=== PATIENT | female | born 1960 | race Caucasian/White ===

== ENCOUNTER 2023-01-24 16:18 | Observation (INO) ==
--- NOTE | 2023-01-24 16:49 | XRay Report ---
XR chest 1V not portable CLINICAL HISTORY: Chest pain, nonspecific TECHNIQUE: Single frontal radiograph of the chest was obtained. Comparison: None available at the time of this dictation. FINDINGS: No lines and tubes are seen. The cardiomediastinal silhouette is normal. The lungs are clear. No evid ence of pleural effusion or pneumothorax. IMPRESSION: No acute chest disease. ACT 112: Negative or not required by law. Electronically signed by: Jamie Coyne M.D. 01/24/2023 4:48 PM
[2023-01-24 16:52] LABS: Basophils # (auto) 0.02 K/uL (0-0.2); Basophils % (auto) 0.3 %; Eosinophils # (auto) 0.09 K/uL (0-0.50); Eosinophils % (auto) 1.5 %; Hematocrit (blood only) 38.6 % (37.0-47.0); Hemoglobin 13.4 g/dl (12.0-16.0); Immature Granulocytes # (auto) 0.02 K/uL (0.01-0.20); Immature Granulocytes % (auto) 0.3 %; Lymphocytes % (auto) 32.3 %; Mean Corpuscular Hemoglobin 30.6 pg (25.0-34.0); Mean Corpuscular Hgb Conc 34.7 g/dL (32.0-36.0); Mean Corpuscular Volume 88.1 fL (80.0-100.0); Mean Platelet Volume 9.8 fL (9.4-12.4); Monocytes # (auto) 0.43 K/uL (0.11-0.59); Monocytes % (auto) 7.3 %; Neutrophils # (auto) 3.43 K/uL (1.40-6.50); Neutrophils % (auto) 58.3 %; Platelet Count 205 K/uL (130-400); RDW Coefficient of Variation 12.3 % (11.5-14.5); RDW Standard Deviation 39.7 fL (36.4-46.3); Red Blood Count 4.38 M/uL (4.20-5.40); White Blood Count 5.89 K/ul (4.8-10.8)
[2023-01-24 17:06] LABS: Albumin Globulin Ratio 1.7 (0.9-2); Albumin Level 4.3 gm/dl (3.4-5.0); BUN Creatinine Ratio 20.8 (10-20); Bilirubin,Total 0.3 mg/dl (0.2-1.0); Calcium 9.6 mg/dl (8.6-10.3); Creatinine Clr Calc Pharmacy 96.4 ml/min; Est GFR (Non-African American) 89.8 ml/min; Globulin 2.6 gm/dl (2.5-4.0); Potassium 3.8 mmol/L (3.5-5.1); Total Protein 6.9 gm/dl (6.0-8.3)
[2023-01-24] MEDS ORDERED: ONDANSETRON INJ 2 MG/ML 2 ML VIAL IV STA (17:09)
[2023-01-24] MEDS ORDERED: FAMOTIDINE 20MG IV PUSH 20 MG/5 ML SYR IV STA (17:09)
[2023-01-24] MEDS ORDERED: ASPIRIN 81 MG CHEW PO STA (17:09)
[2023-01-24 17:13] LABS: Troponin I High Sensitivity 2.9 pg/ml (0-14)
--- NOTE | 2023-01-24 17:14 | Emergency Department Note ---
History of Present Illness General Chief complaint: Chest Pain Stated complaint: NAUSEA, CHEST PAIN, LT ARM PAIN Time Seen by Provider: 01/24/23 16:54 History of Present Illness Maximum Pain Intensity: 1 This is a 62-year-old female that presents to the emergency department via private vehicle with complaints of "sensation to vomit, chest pain, left arm pain, left-sided headache". The patient notes that yesterday late in the day she began with chest discomfort, left arm discomfort, sensation to vomit. She described the sensation to vomit as feeling as though there is fluid under her sternum that she needs to vomit but denies any sensation in the mouth or any true vomiting. She states the last time she experienced the chest discomfort and left arm achy sensation was a few hours prior to arrival. In addition she also notes that she has been experiencing a left-sided occipital headache as of recent. She notes that she did not think much of it over the past week or so as she has been taking ibuprofen for a tooth that recently underwent a root canal on the right. She is also currently on Augmentin but denies any issues with the Augmentin. Patient denies any trauma or injury. No fevers or chills. She denies any trouble moving her bowels or urinating. No abdominal pain. She has never had this happen before. She notes a history of hypercholesterolemia. She also takes vitamin D supplementation/multivitamins. She does note history of [place] with her parents prior to age 65. Patient normally takes a low-dose aspirin daily but did not take her medications today. She notes a remote history of GERD. Patient does note she had unilateral leg edema recently following a wedding where she was dancing but denies any known trauma or injury. She states that the leg edema has resolved. Home Medications Medication Instructions Recorded Confirmed Type amoxicillin 875 mg-potassium 1 tab PO Q12 01/24/23 01/24/23 History clavulanate 125 mg tablet aspirin 81 mg tablet,delayed 81 mg PO DAILY 01/24/23 01/24/23 History release cholecalciferol (vitamin D3) 50 50 mcg PO DAILY 01/24/23 01/24/23 History mcg (2,000 unit) tablet (Vitamin D3) epinephrine 0.3 mg/0.3 mL 0.3 mg IM DIRECTED PRN Severe 01/24/23 01/24/23 History injection, auto-injector allergic reaction [id number] tablet 1 tab PO DAILY 01/24/23 01/24/23 History rosuvastatin 20 mg tablet 20 mg PO DAILY 01/24/23 01/24/23 History Allergies Allergy/AdvReac Type Severity Reaction Status Date / Time bee venom protein (honey bee) AdvReac swollen & Verified 01/24/23 19:10 red Past Med/Surg History Medical History Dyslipidemia Esophageal stricture GERD (gastroesophageal reflux disease) Hx of hypercholesterolemia Sinusitis Surgical History H/O tubal ligation History of root canal procedure S/P appy S/P cholecystectomy Family History Mother Coronary heart disease Father Coronary heart disease Social History Smoking Status: Former smoker Second Hand Exposure: No; Do You Dip or Chew Tobacco: No; Hx Alcohol Use: Yes Alcohol type: wine Hx Substance Use: No Preferred Language: Russian Mine Analyst Required: No Beliefs That Will Affect Care: None Current Living Situation: Spouse Current Living Situation Comment: Lives at home with Other Information That Helps Us Care for You: No Feels Safe at Home: Yes Safety Concerns: Feels Safe At This Time Assistive Devices: Glasses Review of Systems A total of 10 systems reviewed and were otherwise negative Physical Exam Vital Signs Vital Signs - 24 hr 01/24/23 16:20 01/24/23 17:08 01/24/23 16:24 Temperature 36.5 C Temperature Source Temporal Artery Scan Pulse Rate 79 74 Pulse Rate from SpO2 Sensor Respiratory Rate 18 Respiratory Effort / Characteristics Non-Labored Blood Pressure 139/87 Blood Pressure Mean 104 Pulse Oximetry 96 94 Oxygen Delivery Method Room Air Room Air Sepsis Recent Fever Within 48 Hours No Sepsis New/Unexplained Change in Mental Status N/A Sepsis Action Taken by Nursing No Action Required 01/24/23 17:06 01/24/23 17:35 Temperature Temperature Source Pulse Rate 71 67 Pulse Rate from SpO2 Sensor 70 Respiratory Rate 20 19 Respiratory Effort / Characteristics Blood Pressure 145/93 H Blood Pressure Mean 110 Pulse Oximetry 94 Oxygen Delivery Method Sepsis Recent Fever Within 48 Hours Sepsis New/Unexplained Change in Mental Status Sepsis Action Taken by Nursing VITAL SIGNS - Vital signs and nursing notes were reviewed. Stable and afebrile. GENERAL -62-year-old female appearing her stated age who is in no acute distress. Communicates well with provider and answers questions appropriately. SKIN - Without rashes. HEAD - NC/AT. EYES - PERRL with EOMI bilaterally. Sclera anicteric. Palpebral conjunctiva pink and moist with no injection noted. EARS - No deformities of external structures noted on gross examination bilaterally. No pain elicited with palpation of the tragus bilaterally. External auditory canals without discharge or otorrhea. Tympanic membranes pearly murillo without retraction or bulging. No fluid or purulent material visualized behind the TM. Handle of malleus, umbo, cone of light, pars tensa/flaccid all easily visualized. NOSE - Midline and without cyanosis. No epistaxis or purulent drainage noted. Septum midline without deviation or septal hematoma noted. MOUTH/OROPHARYNX - Without perioral cyanosis. Buccal mucosa pink and moist and without leukoplakia. Tongue midline with equal elevation of palate bilaterally. No tonsillar hypertrophy, erythema, or exudates noted. Good dentition noted. NECK - Neck with FROM. No nuchal rigidity. LUNGS - Chest wall symmetric without accessory muscle use, intercostals retractions, or central cyanosis. Normal vesicular breath sounds CTA B/L. No wheezes, rales, or rhonchi appreciated. CARDIAC - RRR with S1/S2. No murmur, rubs, or gallops appreciated. ABDOMEN - Abdominal contour normal without pulsations or visible masses. BS normoactive all four quadrants. No tenderness, palpable masses, hepatosplenomegaly, or ascites noted. Overall benign abdominal examination. No guarding or rigidity. EXTREMITIES - No clubbing or peripheral cyanosis. NEUROLOGIC - Cranial nerves II through XII grossly intact. PSYCH - A&O, and cooperates fully with examiner. Pt is very pleasant and interacts well with examiner. Course Administered Medications Discontinued Medications Al Hydrox/Mg Hydrox/Simethicone (Aluminum/Magnesium/Simeth (Maalox Max) 30 Ml Udc) 30 ml PO NOW STA Stop: 01/24/23 19:57 Last Admin: 01/24/23 21:49 Dose: 30 ml Documented By: SHAN Aspirin (Aspirin 81 Mg Chew) 324 mg PO NOW STA Stop: 01/24/23 17:10 Last Admin: 01/24/23 17:39 Dose: 324 mg Documented By: ILYA Famotidine (Pepcid 20mg Iv Push) 20 mg in 5 mls @ 2.5 mls/min IV NOW STA Stop: 01/24/23 17:10 Last Admin: 01/24/23 17:39 Dose: 2.5 mls/min Documented By: ILYA Ioversol (Optiray 320 500ml) 113 ml IV ONCE ONE Stop: 01/24/23 17:25 Last Admin: 01/24/23 17:24 Dose: 113 ml Documented By: SOFÍA Ondansetron HCl (Ondansetron Inj 2 Mg/Ml 2 Ml Vial) 4 mg IV NOW STA Stop: 01/24/23 17:10 Last Admin: 01/24/23 17:39 Dose: 4 mg Documented By: LIYA Medical Decision Making Laboratory Data 01/24/23 16:31 01/24/23 16:31 Lab Results 01/24/23 01/24/23 01/24/23 Range/Units 16:31 16:31 16:31 WBC 5.89 (4.8-10.8) K/ul RBC 4.38 (4.20-5.40) M/uL Hgb 13.4 (12.0-16.0) g/dl Hct 38.6 (37.0-47.0) % MCV 88.1 (80.0-100.0) fL MCH 30.6 (25.0-34.0) pg MCHC 34.7 (32.0-36.0) g/dL RDW Std Deviation 39.7 (36.4-46.3) fL RDW Coeff of Florina 12.3 (11.5-14.5) % Plt Count 205 (130-400) K/uL MPV 9.8 (9.4-12.4) fL Immature Gran % (Auto) 0.3 % Neut % (Auto) 58.3 % Lymph % (Auto) 32.3 % [place] % (Auto) 7.3 % Eos % (Auto) 1.5 % Baso % (Auto) 0.3 % Neut # (Auto) 3.43 (1.40-6.50) K/uL Lymph # (Auto) 1.90 (1.2-3.4) K/uL [place] # (Auto) 0.43 (0.11-0.59) K/uL Eos # (Auto) 0.09 (0-0.50) K/uL Baso # (Auto) 0.02 (0-0.2) K/uL Immature Gran # (Auto) 0.02 (0.01-0.20) K/uL PT 10.3 (9.0-12.0) Seconds INR 0.9 (0.9-1.1) APTT 25.1 (21.0-31.0) Seconds PTT Ratio 0.9 Sodium 139 (136-145) mmol/L Potassium 3.8 (3.5-5.1) mmol/L Chloride 107 (98-107) mmol/L Carbon Dioxide 27 (21-32) mmol/L Anion Gap 5 (3-11) BUN 15 (6-23) mg/dl Creatinine 0.72 (0.6-1.2) mg/dl Est Cr Clr Drug Dosing 96.4 ml/min Est GFR ( Amer) 104.0 ml/min Est GFR (Non-Af Amer) 89.8 ml/min BUN/Creatinine Ratio 20.8 H (10-20) Glucose 87 (70-99(Fasting)) mg/dl Calcium 9.6 (8.6-10.3) mg/dl Total Bilirubin 0.3 (0.2-1.0) mg/dl AST 45 H (13-39) U/L ALT 60 H (7-52) U/L Alkaline Phosphatase 91 (34-104) U/L Troponin I High Sens 2.9 (0-14) pg/ml Total Protein 6.9 (6.0-8.3) gm/dl Albumin 4.3 (3.4-5.0) gm/dl Globulin 2.6 (2.5-4.0) gm/dl Albumin/Globulin Ratio 1.7 (0.9-2) Anaplasma Smear See Comment Lyme Disease IgG Ab (Negative) Lyme Disease IgM Ab (Negative) SARS-CoV-2, RNA, NAAT (NEGATIVE) 01/24/23 01/24/23 Range/Units 16:31 18:54 WBC (4.8-10.8) K/ul RBC (4.20-5.40) M/uL Hgb (12.0-16.0) g/dl Hct (37.0-47.0) % MCV (80.0-100.0) fL MCH (25.0-34.0) pg MCHC (32.0-36.0) g/dL RDW Std Deviation (36.4-46.3) fL RDW Coeff of Florina (11.5-14.5) % Plt Count (130-400) K/uL MPV (9.4-12.4) fL Immature Gran % (Auto) % Neut % (Auto) % Lymph % (Auto) % [place] % (Auto) % Eos % (Auto) % Baso % (Auto) % Neut # (Auto) (1.40-6.50) K/uL Lymph # (Auto) (1.2-3.4) K/uL [place] # (Auto) (0.11-0.59) K/uL Eos # (Auto) (0-0.50) K/uL Baso # (Auto) (0-0.2) K/uL Immature Gran # (Auto) (0.01-0.20) K/uL PT (9.0-12.0) Seconds INR (0.9-1.1) APTT (21.0-31.0) Seconds PTT Ratio Sodium (136-145) mmol/L Potassium (3.5-5.1) mmol/L Chloride (98-107) mmol/L Carbon Dioxide (21-32) mmol/L Anion Gap (3-11) BUN (6-23) mg/dl Creatinine (0.6-1.2) mg/dl Est Cr Clr Drug Dosing ml/min Est GFR ( Amer) ml/min Est GFR (Non-Af Amer) ml/min BUN/Creatinine Ratio (10-20) Glucose (70-99(Fasting)) mg/dl Calcium (8.6-10.3) mg/dl Total Bilirubin (0.2-1.0) mg/dl AST (13-39) U/L ALT (7-52) U/L Alkaline Phosphatase (34-104) U/L Troponin I High Sens (0-14) pg/ml Total Protein (6.0-8.3) gm/dl Albumin (3.4-5.0) gm/dl Globulin (2.5-4.0) gm/dl Albumin/Globulin Ratio (0.9-2) Anaplasma Smear Lyme Disease IgG Ab Negative (Negative) Lyme Disease IgM Ab Negative (Negative) SARS-CoV-2, RNA, NAAT NEGATIVE (NEGATIVE) Imaging Data Radiologist's Impression: Chest X-Ray 01/24/23 16:24 XR chest 1V not portable CLINICAL HISTORY: Chest pain, nonspecific TECHNIQUE: Single frontal radiograph of the chest was obtained. Comparison: None available at the time of this dictation. FINDINGS: No lines and tubes are seen. The cardiomediastinal silhouette is normal. The lungs are clear. No evidence of pleural effusion or pneumothorax. IMPRESSION: No acute chest disease. ACT 112: Negative or not required by law. Electronically signed by: Jamie Coyne M.D. 01/24/2023 4:48 PM Chest CTA 01/24/23 17:09 CT angio chest PE protocol CLINICAL HISTORY: chest pain/L arm pain, vomit sensation, leg edema TECHNIQUE: Multidetector row helical CT of the chest was performed with angiographic protocol. Coronal and sagittal reformations were obtained. Coronal and sagittal MIPS were obtained from the axial data set and were submitted for review. Automated dose lowering techniques and/or adjustment according to patient size were utilized for this exam. CT DOSE: 1430.55 mGy.cm Comparison: None available at the time of this dictation. FINDINGS: Lungs and pleura: Calcified granulomata are seen. Heart and pericardium: Heart size is normal. No pericardial effusion. Vessels: No evidence of pulmonary embolism. Mediastinum and tammy: Unremarkable. Chest wall and lower neck: Unremarkable. Abdomen: Patient is status post cholecystectomy. A small hiatal hernia is seen. Bones: Unremarkable. IMPRESSION: No pulmonary embolus is seen. ACT 112: Negative or not required by law. Electronically signed by: Jamie Coyne M.D. 01/24/2023 6:[address] 01/24/23 17:09 CT head/brain wo con CLINICAL HISTORY: L sided headache, sensation to vomit Technique: Contiguous axial CT images of the head were acquired from the base of the skull to the vertex without intravenous contrast administration. Images were viewed in brain, subdural and bone windows. Automated dose lowering techniques and/or adjustment according to patient size were utilized for this exam. Comparison: None available at the time of this dictation. Findings: The ventricles, basal cisterns, and cerebral sulci are normal. There is no acute intracranial hemorrhage or evidence of acute territorial infarction. Neither mass effect, shift of the midline structures, nor abnormal extra-axial fluid collections are shown. Bilateral postsurgical changes are seen in the sinuses. The orbits appear normal. There are no acute fractures of the calvaria or scalp swelling. Impression: No acute intracranial hemorrhage, no evidence of acute territorial infarction or other acute intracranial disease process. ACT 112: Negative or not required by law. Electronically signed by: Jamie Coyne M.D. 01/24/2023 5:39 PM MDM Narrative Patient was seen and evaluated as above in room B11. Review was performed of triage nursing notes and vital signs. After obtaining a thorough history and physical examination the above work up was performed. Patient presents to us today for assessment of chest pain, left arm achy sensation, left occipital headache and the sensation that she has to vomit. Clinically well-appearing and nontoxic. Vital signs stable. Options of care were discussed with the patient. IV access was established. Labs were drawn. Labs reveal no leukocytosis or concerning anemia. Coags normal. No emergent metabolic disturbance. Mild transaminitis with AST at 45 and ALT at 60. Troponin negative. Anaplasmosis smear negative with send out test pending. Lyme negative. Chest x-ray negative. CT chest PE was obtained noting the patient's symptoms and is as above and negative for PE. CT head also obtained noting the patient's headache. This was also negative. Patient has been taking ibuprofen recently and is on Augmentin. Certainly there could be a component of reflux causing her discomfort however I do believe that cardiac rule out is reasonable. While here in the ED she was administered aspirin as well as IV Pepcid and Zofran. No change in symptoms. I believe that further evaluation and management in the inpatient setting is warranted. Case discussed with the hospitalist service. Please refer to further documentation regarding her stay. Patient amenable to plan of care. EKG per my interpretation reveals normal sinus rhythm at a rate of 78 bpm. QTc 430. QRS 90. There is no ST elevation. GCS: 15 In the evaluation and treatment of this patient the following differential diagnoses were entertained: [place], PE, dissection, esophagitis, gastritis, reflux, pneumonia, costochondritis, among others. Impression & Plan Chest pain, Headache, Transaminitis Discharge Plan Visit Data Chief Complaint: Chest Pain Stated Complaint: NAUSEA, CHEST PAIN, LT ARM PAIN ED Provider: Jhonny Martinez ED Midlevel Provider: Johnathan Reeves Discharge Problem: Chest pain, Headache, Transaminitis Patient Disposition: Admitted As Inpatient Condition: Good Discharge Instructions Interventions: ED Discharge Assessment Last Done: 01/24/23 20:08
[2023-01-24 17:20] LABS: INR 0.9 (0.9-1.1); Partial Thromboplastin Ratio 0.9; Partial Thromboplastin Time 25.1 Seconds (21.0-31.0); Prothrombin Time 10.3 Seconds (9.0-12.0)
[2023-01-24] MEDS ORDERED: OPTIRAY 320 500ml IV ONE (17:24)
--- NOTE | 2023-01-24 17:40 | CT Scan Report ---
CT head/brain wo con CLINICAL HISTORY: L sided headache, sensation to vomit Technique: Contiguous axial CT images of the head were acquired from the base of the skull to the cynthia derrek without intravenous contrast administration. Images were viewed in brain, subdural and bone windo ws. Automated dose lowering techniques and/or adjustment according to patient size were utilized for this exam. Comparison: None available at the time of this dictation. Findings: The ventricles, basal cisterns, and cerebral sulci are normal. There is no acute intracranial hemorrh age or evidence of acute territorial infarction. Neither mass effect, shift of the midline structures , nor abnormal extra-axial fluid collections are shown. Bilateral postsurgical changes are seen in the sinuses. The orbits appear normal. There are no acute fractures of the calvaria or scalp swelling. Impression: No acute intracranial hemorrhage, no evidence of acute territorial infarction or other acute intracra nial disease process. ACT 112: Negative or not required by law. Electronically signed by: Jamie Coyne M.D. 01/24/2023 5:39 PM
[2023-01-24 18:11] LABS: Lyme Ab IgG w/WB Rflx Negative (Negative); Lyme Ab IgM w/WB Rflx Negative (Negative)
--- NOTE | 2023-01-24 18:26 | CT Scan Report ---
CT angio chest PE protocol CLINICAL HISTORY: chest pain/L arm pain, vomit sensation, leg edema TECHNIQUE: Multidetector row helical CT of the chest was performed with angiographic protocol. Rascon l and sagittal reformations were obtained. Coronal and sagittal MIPS were obtained from the axial aissatou a set and were submitted for review. Automated dose lowering techniques and/or adjustment according to patient size were utilized for this exam. CT DOSE: 1430.55 mGy.cm Comparison: None available at the time of this dictation. FINDINGS: Lungs and pleura: Calcified granulomata are seen. Heart and pericardium: Heart size is normal. No pericardial effusion. Vessels: No evidence of pulmonary embolism. Mediastinum and tammy: Unremarkable. Chest wall and lower neck: Unremarkable. Abdomen: Patient is status post cholecystectomy. A small hiatal hernia is seen. Bones: Unremarkable. IMPRESSION: No pulmonary embolus is seen. ACT 112: Negative or not required by law. Electronically signed by: Jamie Coyne M.D. 01/24/2023 6:24 PM
--- NOTE | 2023-01-24 19:24 | History & Physical Report ---
Date of Service January 24, 2023 Assessment & Plan (1) Atypical chest pain: Plan: Unlikely that symptoms are cardiac in nature with her description of needing to vomit up something for relief. Symptoms are not consistent with ACS, and there is no elevation in troponin or EKG changes. It is more likely that she is having a GI side effect of recent Augmentin and prescription strength Ibuprofen use related to recent root canal with dental infection. We are stopping both agents now as she has already had 7 days. Maalox for discomfort. As she is continuing to tolerate PO and ask for food this is reassuring that she will continue to improve off these medications. Rule out ACS was felt prudent given her family history and dyslipidemia. Will order a stress test in the morning after serial cardiac troponins result negative. (2) Transaminitis: Plan: Mild elevation in both AST and ALT is possibly related to recent antibiotic use, ibuprofen use, statin use or all of the above. Clinical picture is not consistent with fulminant hepatitis, which is a known severe reaction to augmentin. Would repeat LFTs in one week to ensure they are stable or decreased. (3) Dyslipidemia: Plan: on Crestor 20mg which had intermittently been stopped while she was living in [place] for several months. She is concerned this may be causing headaches. Cont for now and discuss further with primary provider. Repeat fasting lipid panel in am. (4) GERD (gastroesophageal reflux disease): Plan: this has resolved and she is off PPI for >1 year. Lovenox Full Code Dispo-to home in am pending results of stress test. Shira Dutton DO [facility] Hospitalist History of Present Illness Chief Complaint: chest pain Primary Care Provider: Paul Wiggins 62 yo F nonsmoker with no prior history of CAD presents with left sided chest pain and left arm pain described as a soreness. She has a feeling of something in her stomach that needs to be vomited up but she is unable to get it out. She denies any abdominal pain or nausea and states that the zofran did not improve her symptoms. She reports a posterior headache for the past two months. She has undergone a two-staged root canal and required Ibuprofen consistently for pain over the last couple of weeks as well as a week long course of clindamycin and most recently a week long course of Augmentin. She started feeling this GI discomfort within the last week. She is still able to eat food and is requesting dinner. She has no history of CAD, and is low risk despite a history of smoking and hyperlipidemia on Crestor. She feels her headache may be a side effect of her crestor. She reports her mom had an IL in her 60s and both parents required open heart surgery. She has a h/o GERD but reports this has been resolved and she has been off her PPI for >1 year. She has a distant h/o esophageal stricture, last requiring dilation in 2007 or 2008. She denies any symptoms of dysphagia or globus sensation and no weight loss, hematemesis or other alarm symptoms. Allergies Allergy/AdvReac Type Severity Reaction Status Date / Time bee venom protein (honey bee) AdvReac swollen & Verified 01/24/23 19:10 red Home Medications Medication Instructions Recorded Confirmed Type amoxicillin 875 mg-potassium 1 tab PO Q12 01/24/23 01/24/23 History clavulanate 125 mg tablet aspirin 81 mg tablet,delayed 81 mg PO DAILY 01/24/23 01/24/23 History release cholecalciferol (vitamin D3) 50 50 mcg PO DAILY 01/24/23 01/24/23 History mcg (2,000 unit) tablet (Vitamin D3) epinephrine 0.3 mg/0.3 mL 0.3 mg IM DIRECTED PRN Severe 01/24/23 01/24/23 History injection, auto-injector allergic reaction [id number]-wcdvmpgm-rxcmsw tablet 1 tab PO DAILY 01/24/23 01/24/23 History rosuvastatin 20 mg tablet 20 mg PO DAILY 01/24/23 01/24/23 History Past Med/Surg History Medical History Dyslipidemia Esophageal stricture GERD (gastroesophageal reflux disease) Hx of hypercholesterolemia Sinusitis Surgical History H/O tubal ligation History of root canal procedure S/P appy S/P cholecystectomy Family History Mother Coronary heart disease Father Coronary heart disease Social History Smoking Status: Former smoker Hx Alcohol Use: Yes Preferred Language: Pashto Feels Safe at Home: Yes Review of Systems Review of Systems: All systems were reviewed and negative except as indicated on HPI above. Physical Exam Physical Exam: CONSTITUTIONAL: WNWD, vitals as above, generally well-appearing, NAD EYES: normal conjunctivae, no scleral icterus ENT: external ear and nose normal, MMM NECK: trachea midline RESPIRATORY: clear to auscultation bilaterally, no crackles, rales or wheezes, normal respiratory effort CARDIOVASCULAR: regular rate and rhythm, S1 and 2 heard without murmurs, gallops or rubs, no JVD, no peripheral edema CHEST: inspection of chest was normal GASTROINTESTINAL: soft, nontender, ND, no guarding MUSCULOSKELETAL: strength 5/5 throughout, head is normocephalic and atraumatic SKIN: warm and dry NEUROLOGIC: CN 2-12 grossly intact, no sensory deficit, normal cognition, normal speech, no tremor PSYCHIATRIC: alert cooperative and oriented to person, place and time. Euthymic mood, makes good eye contact, language grossly intact, recent and remote memory grossly intact. Results & Data Results & Data Vital Signs (Past 12 Hours) Vital Signs Temp Pulse Resp BP Pulse Ox O2 Del Method 01/24/23 17:35 67 19 01/24/23 17:06 71 20 145/93 H 94 01/24/23 16:24 94 Room Air 01/24/23 17:08 74 01/24/23 16:20 36.5 C 79 18 139/87 96 Room Air Laboratory Results Short CBC 01/24/23 Range/Units 16:31 WBC 5.89 (4.8-10.8) K/ul Hgb 13.4 (12.0-16.0) g/dl Hct 38.6 (37.0-47.0) % Plt Count 205 (130-400) K/uL BMP 01/24/23 16:31 Sodium 139 Potassium 3.8 Chloride 107 Carbon Dioxide 27 BUN 15 Creatinine 0.72 Glucose 87 Calcium 9.6 Liver Function 01/24/23 Range/Units 16:31 Total Bilirubin 0.3 (0.2-1.0) mg/dl AST 45 H (13-39) U/L ALT 60 H (7-52) U/L Alkaline Phosphatase 91 (34-104) U/L Albumin 4.3 (3.4-5.0) gm/dl Diagnostic Findings Chest X-Ray 01/24/23 16:24 XR chest 1V not portable CLINICAL HISTORY: Chest pain, nonspecific TECHNIQUE: Single frontal radiograph of the chest was obtained. Comparison: None available at the time of this dictation. FINDINGS: No lines and tubes are seen. The cardiomediastinal silhouette is normal. The lungs are clear. No evidence of pleural effusion or pneumothorax. IMPRESSION: No acute chest disease. ACT 112: Negative or not required by law. Electronically signed by: Jamie Coyne M.D. 01/24/2023 4:48 PM Chest CTA 01/24/23 17:09 CT angio chest PE protocol CLINICAL HISTORY: chest pain/L arm pain, vomit sensation, leg edema TECHNIQUE: Multidetector row helical CT of the chest was performed with angiographic protocol. Coronal and sagittal reformations were obtained. Coronal and sagittal MIPS were obtained from the axial data set and were submitted for review. Automated dose lowering techniques and/or adjustment according to patient size were utilized for this exam. CT DOSE: 1430.55 mGy.cm Comparison: None available at the time of this dictation. FINDINGS: Lungs and pleura: Calcified granulomata are seen. Heart and pericardium: Heart size is normal. No pericardial effusion. Vessels: No evidence of pulmonary embolism. Mediastinum and tammy: Unremarkable. Chest wall and lower neck: Unremarkable. Abdomen: Patient is status post cholecystectomy. A small hiatal hernia is seen. Bones: Unremarkable. IMPRESSION: No pulmonary embolus is seen. ACT 112: Negative or not required by law. Electronically signed by: Jamie Coyne M.D. 01/24/2023 6:[address] 01/24/23 17:09 CT head/brain wo con CLINICAL HISTORY: L sided headache, sensation to vomit Technique: Contiguous axial CT images of the head were acquired from the base of the skull to the vertex without intravenous contrast administration. Images were viewed in brain, subdural and bone windows. Automated dose lowering techniques and/or adjustment according to patient size were utilized for this exam. Comparison: None available at the time of this dictation. Findings: The ventricles, basal cisterns, and cerebral sulci are normal. There is no acute intracranial hemorrhage or evidence of acute territorial infarction. Neither mass effect, shift of the midline structures, nor abnormal extra-axial fluid collections are shown. Bilateral postsurgical changes are seen in the sinuses. The orbits appear normal. There are no acute fractures of the calvaria or scalp swelling. Impression: No acute intracranial hemorrhage, no evidence of acute territorial infarction or other acute intracranial disease process. ACT 112: Negative or not required by law. Electronically signed by: Jamie Coyne M.D. 01/24/2023 5:39 PM Code Status & VTE Plan VTE Prophylaxis Plan VTE Prophylaxis will be ordered: Yes
[2023-01-24] MEDS ORDERED: ALUMINUM/MAGNESIUM/SIMETH (MAALOX MAX) 30 ML UDC PO STA (19:56)
[2023-01-24] MEDS ORDERED: NITROGLYCERIN SL 0.4 MG/TAB TAB SL PRN (20:50)
[2023-01-24] MEDS ORDERED: ALUMINUM/MAGNESIUM SUSP 30 ML UDC PO PRN (20:50)
[2023-01-24] MEDS ORDERED: ACETAMINOPHEN 325 MG TAB PO PRN (20:50)
[2023-01-25 03:54] LABS: Basophils # (auto) 0.02 K/uL (0-0.2); Basophils % (auto) 0.3 %; Eosinophils # (auto) 0.08 K/uL (0-0.50); Eosinophils % (auto) 1.3 %; Hemoglobin 12.7 g/dl (12.0-16.0); Immature Granulocytes # (auto) 0.02 K/uL (0.01-0.20); Immature Granulocytes % (auto) 0.3 %; Lymphocytes # (auto) 2.16 K/uL (1.2-3.4); Lymphocytes % (auto) 34.2 %; Mean Corpuscular Hemoglobin 30.9 pg (25.0-34.0); Mean Corpuscular Hgb Conc 34.3 g/dL (32.0-36.0); Mean Platelet Volume 9.7 fL (9.4-12.4); Monocytes # (auto) 0.43 K/uL (0.11-0.59); Monocytes % (auto) 6.8 %; Neutrophils # (auto) 3.61 K/uL (1.40-6.50); Neutrophils % (auto) 57.1 %; Platelet Count 195 K/uL (130-400); RDW Coefficient of Variation 12.4 % (11.5-14.5); RDW Standard Deviation 40.9 fL (36.4-46.3); Red Blood Count 4.11 M/uL (4.20-5.40); White Blood Count 6.32 K/ul (4.8-10.8)
[2023-01-25 04:11] LABS: BUN Creatinine Ratio 18.1 (10-20); Calcium 9.2 mg/dl (8.6-10.3); Chol HDL Ratio 3.7 (0-5); Creatinine Clr Calc Pharmacy 83.2 ml/min; Est GFR (African American) 87.6 ml/min; Est GFR (Non-African American) 75.6 ml/min; Potassium 3.8 mmol/L (3.5-5.1)
[2023-01-25 07:20] LABS: Estimated Average Glucose 114 mg/dl; Hemoglobin A1C 5.6 % (4.5-5.6)
[2023-01-25] MEDS ORDERED: ATROPINE SULFATE 0.1 MG/ML 10ML SYR IV ONE (08:16)
[2023-01-25] MEDS ORDERED: METOPROLOL TARTRATE 1 MG/ML VIAL IV ONE (08:16)
[2023-01-25] MEDS ORDERED: DOBUTamine HCL 12.5 MG/ML 20 ML VIAL IV ONE (08:16)
--- NOTE | 2023-01-25 08:47 | Cardiology Consultation ---
Date of Consultation January 25, 2023 Assessment & Plan (1) Atypical chest pain: -Serial troponin measurements are reassuring. EKG x 1 within normal limits. -Patient is gone on to have an exercise stress echocardiogram which was supervised independently by the undersigned. -No symptoms suggestive of angina or induced with exercise. At baseline, she had ongoing epigastric discomfort that she described as being a "acid "feeling and sound characteristic of dyspepsia rather than angina. Symptoms were not wor se with progressive exercise and I think the stress test is reassuring. -I am going to transfer back to the telemetry unit and advance her diet as she is very hungry at this point having been n.p.o. this morning for stress test. (2) Dyslipidemia: -LDL 105 -AST 45, ALT 60 u/l in presentation, yet to be repeated. -Patient notes recent treatment with clindamycin, Augmentin, and acetaminophen. -If repeat levels are improved, consider resuming rosuvastatin. (3) Transaminitis: -Plan for repeat (4) GERD (gastroesophageal reflux disease): -Consider adding an H2 donn or PPI. -Patient with remote esophageal stricture with dilatation procedure that took place elsewhere greater than 10 years ago. History of Present Illness Attending Physician: Izaiah Rich MD History of Present Illness Cammie Osorio is a 62-year-old female seen in cardiology consultation per the request of Dr. Dutton for the evaluation of epigastric discomfort and left chest/arm discomfort. She notes onset of symptoms yesterday. Occurring at rest. His left arm and chest discomfort has resolved, but she still has an uneasy feeling in her epigastric region. She has no personal history of coronary heart disease and does not follow with cardiology on a routine basis. She does however have a history of GERD, but has been off of PPI therapy for 1 year with symptoms well controlled. She has a history of esophageal stricture last requiring dilatation in 2007 or 2008. She has been prescribed rosuvastatin 20 mg daily. She is in the process of changing providers. She has homes in [facility], [place], [place], in [place], and is working on establishing with a new primary care provider in [place]. She had therefore run out of her rosuvastatin and had been off of it for approximately 5 months. The prescription was refilled when she was at urgent care a week ago and she has only been on it for a week. Per her description to me, she was off the rosuvastatin because of having run out of her medications now because of a side effect. Other relevant history includes having had a two-stage root canal that took place in December and subsequent treatment with 10 days of clindamycin, and also treatment with ibuprofen. Shortly thereafter she developed respiratory symptoms including sinus pressure. She had been seen by urgent care, and initially was treated conservatively, but when her symptoms worsen she was placed on a course of Augmentin and she remains on Augmentin with 2 days of treatment left ago. She has tolerated Augmentin well without any diarrhea or other related side effects. 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, and is an systems architecture analyst Allergies Allergy/AdvReac Type Severity Reaction Status Date / Time bee venom protein (honey bee) AdvReac swollen & Verified 01/24/23 19:10 red Home Medications Medication Instructions Recorded Confirmed Type amoxicillin 875 mg-potassium 1 tab PO Q12 01/24/23 01/24/23 History clavulanate 125 mg tablet aspirin 81 mg tablet,delayed 81 mg PO DAILY 01/24/23 01/24/23 History release cholecalciferol (vitamin D3) 50 50 mcg PO DAILY 01/24/23 01/24/23 History mcg (2,000 unit) tablet (Vitamin D3) epinephrine 0.3 mg/0.3 mL 0.3 mg IM DIRECTED PRN Severe 01/24/23 01/24/23 History injection, auto-injector allergic reaction kvuiqkadjqxs-zsnklbyo-wgixce tablet 1 tab PO DAILY 01/24/23 01/24/23 History rosuvastatin 20 mg tablet 20 mg PO DAILY 01/24/23 01/24/23 History Patient History Medical History Dyslipidemia Esophageal stricture GERD (gastroesophageal reflux disease) Hx of hypercholesterolemia Sinusitis Surgical History H/O tubal ligation History of root canal procedure S/P appy S/P cholecystectomy Family History Mother Coronary heart disease Father Coronary heart disease Social History Smoking Status: Former smoker Second Hand Exposure: No; Do You Dip or Chew Tobacco: No; Hx Alcohol Use: Yes Alcohol type: wine Hx Substance Use: No Preferred Language: Bulgarian [employer] Required: No Beliefs That Will Affect Care: None Current Living Situation: Spouse Current Living Situation Comment: Lives at home with Other Information That Helps Us Care for You: No Feels Safe at Home: Yes Safety Concerns: Feels Safe At This Time Assistive Devices: Glasses Review of Systems Review of Systems: All systems reviewed & are unremarkable except as noted in HPI & below Physical Exam Physical Exam: Temp Pulse Resp BP Pulse Ox O2 Del Method 36.7 C 62 18 108/62 95 Room Air 01/25/23 08:34 01/25/23 08:34 01/25/23 08:34 01/25/23 08:34 01/25/23 08:34 01/25/23 08:34 Constitutional: WD/WN, vitals as above Respiratory: normal respiratory effort, lungs clear to auscultation Cardiovascular: RRR, no murmur, no edema Gastrointestinal (Abdomen): normal bowel sounds, soft, nontender, no hepatosplenomegaly Neurologic: PERRL, EOMI, accommodation nl, no face palsy, no dysarthria Results & Data Vital Signs (Past 12 Hours) Vital Signs Temp Pulse Pulse Resp BP Pulse Ox O2 Del Method 01/25/23 08:34 36.7 C 62 18 108/62 95 Room Air 01/25/23 07:21 58 L 01/25/23 03:13 36.8 C 57 L 18 108/68 96 Room Air 01/24/23 23:43 61 01/24/23 23:08 36.6 C 53 L 18 117/73 97 Room Air 01/24/23 21:54 65 01/24/23 21:33 36.5 C 62 18 143/84 H 97 Room Air Laboratory Results Cardiac Enzymes 01/24/23 01/24/23 01/25/23 Range/Units 16:31 21:00 03:26 AST 45 H (13-39) U/L Troponin I High Sens 2.9 2.8 3.6 (0-14) pg/ml Coagulation 01/24/23 Range/Units 16:31 PT 10.3 (9.0-12.0) Seconds APTT 25.1 (21.0-31.0) Seconds Lipids 01/25/23 Range/Units 03:26 Triglycerides 185 H (0-150) mg/dl Cholesterol 194 (0-200) mg/dl HDL Cholesterol 52 mg/dl Cholesterol/HDL Ratio 3.7 (0-5) CBC 01/24/23 01/25/23 Range/Units 16:31 03:26 WBC 5.89 6.32 (4.8-10.8) K/ul RBC 4.38 4.11 L (4.20-5.40) M/uL Hgb 13.4 12.7 (12.0-16.0) g/dl Hct 38.6 37.0 (37.0-47.0) % Plt Count 205 195 (130-400) K/uL Neut # (Auto) 3.43 3.61 (1.40-6.50) K/uL Lymph # (Auto) 1.90 2.16 (1.2-3.4) K/uL [place] # (Auto) 0.43 0.43 (0.11-0.59) K/uL Eos # (Auto) 0.09 0.08 (0-0.50) K/uL Baso # (Auto) 0.02 0.02 (0-0.2) K/uL Comprehensive Metabolic Panel 01/24/23 01/25/23 Range/Units 16:31 03:26 Sodium 139 143 (136-145) mmol/L Potassium 3.8 3.8 (3.5-5.1) mmol/L Chloride 107 106 (98-107) mmol/L Carbon Dioxide 27 33 H (21-32) mmol/L BUN 15 15 (6-23) mg/dl Creatinine 0.72 0.83 (0.6-1.2) mg/dl Glucose 87 94 (70-99(Fasting)) mg/dl Calcium 9.6 9.2 (8.6-10.3) mg/dl AST 45 H (13-39) U/L ALT 60 H (7-52) U/L Alkaline Phosphatase 91 (34-104) U/L Total Protein 6.9 (6.0-8.3) gm/dl Albumin 4.3 (3.4-5.0) gm/dl Intake and Output 01/24/23 01/25/23 01/25/23 22:59 06:59 14:59 Intake Total 200 / 200 0 / 200 Balance 200 / 200 0 / 200 Intake: Oral 200 / 200 0 / 200 Other: Other Intake Source NPO # Unmeasured Voids 1 Weight 84.7 kg 84.7 kg Weight Measurement Method Standing Scale Standing Scale Reports reviewed with chest x-ray, CT angiogram of the chest and head CT that were unremarkable. Diagnostic Findings EKG performed 01/24/2023 at 1627 revealed normal sinus rhythm at 70 bpm, normal EKG
--- NOTE | 2023-01-25 13:49 | Discharge Summary ---
Date of Service January 25, 2023 Admission HPI Per Admitting Provider 62 yo F nonsmoker with no prior history of CAD presents with left sided chest pain and left arm pain described as a soreness. She has a feeling of something in her stomach that needs to be vomited up but she is unable to get it out. She denies any abdominal pain or nausea and states that the zofran did not improve her symptoms. She reports a posterior headache for the past two months. She has undergone a two-staged root canal and required Ibuprofen consistently for pain over the last couple of weeks as well as a week long course of clindamycin and most recently a week long course of Augmentin. She started feeling this GI discomfort within the last week. She is still able to eat food and is requesting dinner. She has no history of CAD, and is low risk despite a history of smoking and hyperlipidemia on Crestor. She feels her headache may be a side effect of her crestor. She reports her mom had an IA in her 60s and both parents required open heart surgery. She has a h/o GERD but reports this has been resolved and she has been off her PPI for >1 year. She has a distant h/o esophageal stricture, last requiring dilation in 2007 or 2008. She denies any symptoms of dysphagia or globus sensation and no weight loss, hematemesis or other alarm symptoms. Admission Exam Per Admitting Provider CONSTITUTIONAL: WNWD, vitals as above, generally well-appearing, NAD EYES: normal conjunctivae, no scleral icterus ENT: external ear and nose normal, MMM NECK: trachea midline RESPIRATORY: clear to auscultation bilaterally, no crackles, rales or wheezes, normal respiratory effort CARDIOVASCULAR: regular rate and rhythm, S1 and 2 heard without murmurs, gallops or rubs, no JVD, no peripheral edema CHEST: inspection of chest was normal GASTROINTESTINAL: soft, nontender, ND, no guarding MUSCULOSKELETAL: strength 5/5 throughout, head is normocephalic and atraumatic SKIN: warm and dry NEUROLOGIC: CN 2-12 grossly intact, no sensory deficit, normal cognition, normal speech, no tremor PSYCHIATRIC: alert cooperative and oriented to person, place and time. Euthymic mood, makes good eye contact, language grossly intact, recent and remote memory grossly intact. Principal Diagnosis Atypical chest pain/epigastric pain - likely from GERD Discharge Exam CONSTITUTIONAL: WNWD, generally well-appearing, F in NAD EYES: normal conjunctivae, no scleral icterus ENT: external ear and nose normal, MMM NECK: trachea midline, neck supple RESPIRATORY: clear to auscultation bilaterally, no crackles, rales or wheezes, normal respiratory effort CARDIOVASCULAR: regular rate and rhythm, S1 and 2 heard without murmurs, gallops or rubs, no JVD, no peripheral edema CHEST: inspection of chest normal GASTROINTESTINAL: soft, nontender, ND, no guarding MUSCULOSKELETAL: strength 5/5 throughout, head is normocephalic and atraumatic SKIN: warm and dry NEUROLOGIC:Awake alert oriented, answering appropriately, no facial asymmetry, speech fluent, moves extremities Discharge Data Allergies Allergy/AdvReac Type Severity Reaction Status Date / Time bee venom protein (honey bee) AdvReac swollen & Verified 01/24/23 19:10 red Consultations 01/24/23 18:48 ED Decision to Admit Stat 01/25/23 07:14 Consult Cardiology Routine Ordered Studies 01/24/23 17:09 CT angio chest PE protocol Stat FINDINGS: Lungs and pleura: Calcified granulomata are seen. Heart and pericardium: Heart size is normal. No pericardial effusion. Vessels: No evidence of pulmonary embolism. Mediastinum and tammy: Unremarkable. Chest wall and lower neck: Unremarkable. Abdomen: Patient is status post cholecystectomy. A small hiatal hernia is seen. Bones: Unremarkable. IMPRESSION: No pulmonary embolus is seen. CT head/brain wo con Stat Findings: The ventricles, basal cisterns, and cerebral sulci are normal. There is no acute intracranial hemorrhage or evidence of acute territorial infarction. Neither mass effect, shift of the midline structures, nor abnormal extra-axial fluid collections are shown. Bilateral postsurgical changes are seen in the sinuses. The orbits appear normal. There are no acute fractures of the calvaria or scalp swelling. Impression: No acute intracranial hemorrhage, no evidence of acute territorial infarction or other acute intracranial disease process. Hospital Course (1) Atypical chest pain: Unlikely that symptoms are cardiac in nature with her description of needing to vomit up something for relief. Symptoms are not consistent with ACS, and there is no elevation in troponin or EKG changes. It is more likely that she is having a GI side effect of recent Augmentin and prescription strength Ibuprofen use related to recent root canal with dental infection. We are stopping both agents now as she has already had 7 days. Maalox for discomfort. As she is continuing to tolerate PO and ask for food this is reassuring that she will continue to improve off these medications. Rule out ACS was felt prudent given her family history and dyslipidemia. Stress test obtained this AM and negative - pt seen by cardiology. Symptoms likely secondary to GERD. Patient would like to be discharged, and follow-up in early February in [place], as that is where they have another home. She has not been on PPI for over a year, will restart PPI, and also prescribed sucralfate. (2) Transaminitis: Mild elevation in both AST and ALT is possibly related to recent antibiotic use, ibuprofen use, statin use or all of the above. Clinical picture is not consistent with fulminant hepatitis, which is a known severe reaction to augmentin. Would repeat LFTs in one week/ next outpt appointment to ensure they are stable or decreased. (3) Dyslipidemia: on Crestor 20mg which had intermittently been stopped while she was living in [place] for several months. She is concerned this may be causing headaches. Cont for now and discuss further with primary provider. Repeat fasting lipid panel in am. current LDL 105 (4) GERD (gastroesophageal reflux disease): she has been off PPI for >1 year. Hx of GERD and tried different medications in the past as many did not work for her. Pls see above. Will restart ppi and sucralfate. Total Time Total Time Spent Total Time Spent (In Minutes): 40 Discharge Plan Discharge Items Patient Disposition: Home - Self-Care Reason For Visit: NAUSEA, CHEST PAIN, LT ARM PAIN Discharge Diagnosis: Atypical chest pain/epigastric pain - likely from GERD Condition on Discharge: Good Activity: Per Instructions section Non-emergency contact: Primary Care Provider Call non-emergency contact if: you have any medication questions and your symptoms worsen Follow-up/Referrals: Paul Wiggins [Primary Care Provider] - (Dr Wiggins' office has been made aware of your discharge from [facility] and will call you with a follow up appointment.) Diet: Heart Healthy Diet Comment: Avoid spicy, acidic foods, caffeine and alcohol Addtl Attending Provider Instructions: Recommend to follow-up with primary care physician within 1 to 2 weeks. Recommend to avoid spicy, acidic foods, caffeine and alcohol. Recommend to resume medication for GERD, Aciphex, and use sucralfate as needed. If symptoms persist, please make sure to contact healthcare provider for further evaluation. Pending Studies at Discharge: No Stand-Alone Forms: My [facility], Smoking Cessation Medications and DC Order Prescriptions: New rabeprazole [AcipHex] 20 mg tablet,delayed release (DR/EC) 20 mg PO DAILY Qty: 30 0RF sucralfate 1 gram tablet 1 g PO TID PRN (Reason: acid reflux) Qty: 30 0RF Rx Instructions: take before meals Continued aspirin 81 mg Tablet,Delayed Release (Dr/Ec) 81 mg PO DAILY epinephrine 0.3 mg/0.3 mL Auto-Injector 0.3 mg IM DIRECTED PRN (Reason: Severe allergic reaction) [id number] Tablet 1 tab PO DAILY rosuvastatin 20 mg tablet 20 mg PO DAILY cholecalciferol (vitamin D3) [Vitamin D3] 50 mcg (2,000 unit) Tablet 50 mcg PO DAILY Discontinued amoxicillin-pot clavulanate 875-125 mg tablet 1 tab PO Q12 Rx Instructions: Started on 01/19/23 Discharge Orders: Discharge Order (Routine); Ordered 01/25/23 Ordered By: Izaiah Rich Admission Data Admit Date/Time: 01/24/23 19:16 Attending Provider: Izaiah Rich Admit Provider: Shira Dutton Primary Care Provider: Paul Wiggins Other Providers: Shira Dutton ; Carlos Cooney Other Interventions: Discharge Summary Assessment (RN) Last Done: 01/25/23 13:47
--- NOTE | 2023-01-25 16:36 | Electrocardiogram Report ---
Test Reason : Blood Pressure : / mmHG Vent. Rate : 078 BPM Atrial Rate : 078 BPM P-R Int : 162 ms QRS Dur : 090 ms QT Int : 378 ms P-R-T Axes : 058 024 045 degrees QTc Int : 430 ms Normal sinus rhythm Normal ECG No previous ECGs available Confirmed by Rick Benavides ([id number] on 01/25/2023 4:36:08 PM Referred By: REFERRED SELF Confirmed By:Juan Alberto Benavides
== END 2023-01-25 14:37 | disposition home or self-care (01) ==
LOC: ED 16:18 → 2N 16:18 → SUATTDRO 19:16 → 2N 20:44